=== PATIENT | female | born 1995 | race African-American/Black ===

== ENCOUNTER 2017-11-17 15:08 | Emergency (ER) | payer OTHER ==
[2017-11-17 15:31] VITALS: BP 98/61; PULSE 83; TEMP 97.3; BMI 20.3
--- NOTE | 2017-11-17 16:48 | PDOC ---
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 Pt states the pain has subsided . Past History - Past Medical History Allergies/Adverse Reactions: Allergies Allergy/AdvReac Type Severity Reaction Status Date / Time clarithromycin [From Biaxin] Allergy Verified 11/17/17 15:18 Home Medications: Ambulatory Orders NK [No Known Home Medication] 11/17/17 COPD: No - Suicide/Smoking/Psychosocial Hx Smoking History: Never smoked Have you smoked in the past 12 months: No Information on smoking cessation initiated: No Hx Alcohol Use: No Drug/Substance Use Hx: No Substance Use Type: None Review of Systems - Review of Systems Able to Perform ROS?: Yes Is the patient limited Mosotho proficient: No Constitutional: No: Symptoms Reported HEENTM: No: Symptoms Reported Respiratory: No: Symptoms reported Cardiac (ROS): No: Symptoms Reported ABD/GI: No: Symptoms Reported : No: Symptoms Reported Musculoskeletal: Yes: Symptoms Reported *Physical Exam - Vital Signs Last Vital Signs Temp Pulse Resp BP Pulse Ox 97.3 F L 83 18 98/61 100 11/17/17 15:18 11/17/17 15:18 11/17/17 15:18 11/17/17 15:18 11/17/17 15:18 - Physical Exam General Appearance: Yes: Nourished, Appropriately Dressed HEENT: positive: EOMI, GISELLA Musculoskeletal: positive: Normal Inspection Extremity: positive: Normal Capillary Refill, Normal Inspection, Normal Range of Motion. negative: Tender, Swelling, Inflammation Integumentary: positive: Normal Color, Dry, Warm Neurologic: positive: Fully Oriented, Alert, Normal Mood/Affect, Normal Response , Motor Strength 5/5 Medical Decision Making - Medical Decision Making 11/17/17 18:42 cc: foot injury no sign of trauma FROM of all 5 toes and the foot right side pt refused an xray refused motrin will dc home with follow up as needed pt has her UGG boot in place states that it is very comfortable in the boot *DC/Admit/Observation/Transfer Diagnosis at time of Disposition: Foot pain, right - Discharge Dispostion Disposition: HOME Condition at time of disposition: Good - Referrals Referrals: Mago Rhodes MD [Primary Care Provider] - Renard Espino MD [Staff Physician] - - Patient Instructions Additional Instructions: follow with the curam developer for follow up if symptoms worsen or persist take motrin for pain as needed elevate and apply ice every 2hrs for 20 minutes for the next 2 days - Post Discharge Activity
== END 2017-11-17 16:50 | disposition home or self-care (01) ==
LOC: JERFT 15:08
DX: S99.821A Other specified injuries of right foot, initial encounter (principal); W01.190A Fall on same level from slipping, tripping and stumbling with subsequent striking against furniture, initial encounter; Y93.89 Activity, other specified; Y92.032 Bedroom in apartment as the place of occurrence of the external cause
CPT/HCPCS: 99281-25

== ENCOUNTER 2018-11-09 18:33 | Emergency (ER) | payer OTHER ==
[2018-11-09 18:43] VITALS: BP 122/70; PULSE 73; TEMP 98.4; BMI 19.9
--- NOTE | 2018-11-09 18:43 | PDOC ---
Rapid Medical Evaluation Chief Complaint: Vaginal Bleeding Time Seen by Provider: 11/09/18 18:40 Medical Evaluation: Allergies Allergy/AdvReac Type Severity Reaction Status Date / Time clarithromycin [From Biaxin] Allergy Verified 11/09/18 18:40 11/09/18 18:41 I have performed a brief in person evaluation of this patient. The patient's CC: vaginal lesions HPI: Pt is a 23 YO female who states over the past 2-3 days she has had vaginal lesions. She denies HX of STDs. PE: Skin: Clear Heart: RRR Lungs: Clear MS. moves all extremities without difficulty. Neuro: Alert and oriented Psch: appropriate affect The patient will proceed to main ED for further evaluation. Discharge Disposition - Diagnosis Vaginal lesion - Referrals - Patient Instructions - Post Discharge Activity
--- NOTE | 2018-11-09 19:45 | PDOC ---
History of Present Illness - General Chief Complaint: Vaginal Bleeding Stated Complaint: Vaginal Bleeding Time Seen by Provider: 11/09/18 18:40 History Source: Patient Exam Limitations: No Limitations - History of Present Illness Travel History: No Initial Comments: 11/09/18 19:40 Here with complaints of pelvic pain. States was taking Levaquin last week for severe bronchitis and finished 8 days ago. Since that time developed a yeast infection with erythema to her vagina and. Knee and with itching but minimal discharge. Yesterday noted a small swelling to the top of her vagina/clitoral area that is mildly tender. Was concerned after her [employer] search that she may have cancer Timing/Duration: reports: constant, intermittent Quality: reports: mild Past History - Travel Traveled outside of the country in the last 30 days: No Close contact w/someone who was outside of country & ill: No - Past Medical History Allergies/Adverse Reactions: Allergies Allergy/AdvReac Type Severity Reaction Status Date / Time clarithromycin [From Biaxin] Allergy Verified 11/09/18 18:40 Home Medications: Ambulatory Orders Fluconazole [Diflucan] 150 mg PO ONCE #1 tablet 11/09/18 COPD: No - Immunization History Immunization Up to Date: Yes - Suicide/Smoking/Psychosocial Hx Smoking History: Never smoked Have you smoked in the past 12 months: No Hx Alcohol Use: No Drug/Substance Use Hx: No Substance Use Type: None Review of Systems - Review of Systems Able to Perform ROS?: Yes Is the patient limited Romanian proficient: Yes Constitutional: Yes: Symptoms Reported, See HPI, Malaise. No: Chills, Fever *Physical Exam - Vital Signs Last Vital Signs Temp Pulse Resp BP Pulse Ox 98.4 F 73 17 122/70 100 11/09/18 18:40 11/09/18 18:40 11/09/18 18:40 11/09/18 18:40 11/09/18 18:40 - Physical Exam General Appearance: Yes: Nourished, Appropriately Dressed, Apparent Distress, Mild Distress HEENT: positive: GISELLA, Normal ENT Inspection, TMs Normal, Pharynx Normal Neck: positive: Supple. negative: Tender Female Pelvic Exam: positive: discharge, other (faint white). negative: normal external exam Gastrointestinal/Abdominal: positive: Soft. negative: Normal Bowel Sounds, Tender Extremity: positive: Normal Capillary Refill Integumentary: positive: Normal Color Neurologic: positive: pelletizer tender II-XII NML intact, Fully Oriented, Alert, Normal Mood/ Affect, Normal Response, Motor Strength 5/5 Moderate Sedation - Procedure Monitoring Vital Signs: Procedure Monitoring Vital Signs Temperature 98.4 F 11/09/18 18:40 Pulse Rate 73 11/09/18 18:40 Respiratory Rate 17 11/09/18 18:40 Blood Pressure 122/70 11/09/18 18:40 O2 Sat by Pulse Oximetry (%) 100 11/09/18 18:40 Progress Note - Progress Note Progress Note: Vaginal candidiasis, will treat with 1 dose of Diflucan, hot soaks to perineum and 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 *DC/Admit/Observation/Transfer Diagnosis at time of Disposition: Vaginal lesion, Candidiasis - Discharge Dispostion Disposition: HOME Condition at time of disposition: Stable Decision to Admit order: No - Prescriptions Prescriptions: Fluconazole [Diflucan] 150 mg PO ONCE #1 tablet - Referrals Referrals: Carmella Juárez MD [Primary Care Provider] - - Patient Instructions Printed Discharge Instructions: DI for Vaginal Yeast Infection Additional Instructions: Rest, strenuous activity or exercise until symptoms resolved avoid tight fitting clothing, use cotton underwear and allowed to air out Hot soaks 2-3 times a day until symptoms resolve 1 tablet of Diflucan 150 mg to treat yeast infection If symptoms persist or worsen, return to emergency department or seek advice from SPINNING BATH PERSON - Post Discharge Activity
== END 2018-11-09 19:55 | disposition home or self-care (01) ==
LOC: JERFT 18:33
DX: B37.3 Candidiasis of vulva and vagina (principal); N89.8 Other specified noninflammatory disorders of vagina
CPT/HCPCS: 99281-25

== ENCOUNTER 2019-01-18 22:53 | Emergency (ER) | payer OTHER ==
[2019-01-18 23:26] VITALS: BP 126/87; PULSE 90; TEMP 98.2
--- NOTE | 2019-01-18 23:41 | PDOC ---
*Physical Exam - Vital Signs Last Vital Signs Temp Pulse Resp BP Pulse Ox 98.2 F 90 18 126/87 100 01/18/19 23:21 01/18/19 23:21 01/18/19 23:21 01/18/19 23:21 01/18/19 23:21 Medical Decision Making - Medical Decision Making 01/18/19 23:41 Patient seen by the advanced practice provider under my direct supervision. Ancillary testing reviewed as necessary. I agree with plan as outlined by the advanced practice provider. *DC/Admit/Observation/Transfer - Referrals Referrals: Carmella Juárez MD [Primary Care Provider] - - Patient Instructions - Post Discharge Activity
== END 2019-01-19 00:20 | disposition left against medical advice (07) ==
LOC: JER 22:53
DX: Z53.21 Procedure and treatment not carried out due to patient leaving prior to being seen by health care provider (principal)
CPT/HCPCS: 99281-25

== ENCOUNTER 2019-03-09 21:43 | Emergency (ER) | payer OTHER ==
[2019-03-09 21:50] VITALS: BP 109/73; PULSE 85; TEMP 98.2; BMI 20.2
--- NOTE | 2019-03-09 21:50 | PDOC ---
Rapid Medical Evaluation Time Seen by Provider: 03/09/19 21:47 Medical Evaluation: Allergies Allergy/AdvReac Type Severity Reaction Status Date / Time clarithromycin [From Biaxin] Allergy Verified 01/18/19 23:23 03/09/19 21:47 I have performed a brief in-person evaluation of this patient. The patient presents with a chief complaint of: "when i went to bathroom i saw i had this jelly like thing to my eye and it was red." pt reports usually wearing contacts Pertinent physical exam findings: left eye mildly injected I have ordered the following: nothing The patient will proceed to the ED for further evaluation. Discharge Disposition - Referrals Referrals: Carmella Juárez MD [Primary Care Provider] - - Patient Instructions - Post Discharge Activity
--- NOTE | 2019-03-09 21:58 | PDOC ---
History of Present Illness - General Chief Complaint: Eye Problem Stated Complaint: EYE PROBLEM Time Seen by Provider: 03/09/19 21:47 - History of Present Illness Initial Comments: 03/09/19 21:57 23-year-old female without comorbidities presents for evaluation of left eye irritation after taking out her contact lens. She states she feels a bulge on the lateral aspect of her left eyeball. Past History - Past Medical History Allergies/Adverse Reactions: Allergies Allergy/AdvReac Type Severity Reaction Status Date / Time clarithromycin [From Biaxin] Allergy Verified 03/09/19 21:47 Home Medications: Ambulatory Orders Tobramycin 0.3% Ophth Soln [Tobrex Ophthalmic Solution -] 1 drop OS Q4HWA 5 Days #1 bottle 03/09/19 COPD: No Psychiatric Problems: Yes - Immunization History Immunization Up to Date: Yes - Suicide/Smoking/Psychosocial Hx Smoking History: Never smoked Have you smoked in the past 12 months: No Hx Alcohol Use: No Drug/Substance Use Hx: No Substance Use Type: None Review of Systems - Review of Systems HEENTM: Yes: See HPI *Physical Exam - Vital Signs Last Vital Signs Temp Pulse Resp BP Pulse Ox 98.2 F 85 18 109/73 100 03/09/19 21:49 03/09/19 21:49 03/09/19 21:49 03/09/19 21:49 03/09/19 21:49 - Physical Exam Comments: 03/09/19 21:57 HEAD: NC/AT EYES: Conjuntiva clear; there is no foreign body present in the left eye MS: Full ROM in all joints without edema NEUROLOGIC: No gross sensory or motor deficits, NVID SKIN: Normal color and temperature no lesions or rashes Medical Decision Making - Medical Decision Making 03/09/19 21:57 There is no foreign body in the eye. Patient does feel and irritation after taking out her contact lens. I've placed on tobramycin drops and will have her follow-up with ophthalmology tomorrow. *DC/Admit/Observation/Transfer Diagnosis at time of Disposition: Eye irritation - Discharge Dispostion Disposition: HOME Condition at time of disposition: Stable Decision to Admit order: No - Referrals Referrals: Carmella Juárez MD [Primary Care Provider] - Taiwo Massey MD [Staff Physician] - - Patient Instructions Additional Instructions: Please use the antibiotic drops as directed and follow-up with ophthalmology in one day without fail. Return to the emergency room for worsening symptoms. - Post Discharge Activity
== END 2019-03-09 22:17 | disposition home or self-care (01) ==
LOC: JERFT 21:43
DX: H57.89 Other specified disorders of eye and adnexa (principal)
CPT/HCPCS: 99281-25

== ENCOUNTER 2019-08-13 09:12 | Emergency (ER) | payer OTHER ==
[2019-08-13 09:19] VITALS: BP 120/72; PULSE 74; TEMP 98.2; BMI 20.2
--- NOTE | 2019-08-13 09:34 | PDOC ---
History of Present Illness - General Chief Complaint: Pain Stated Complaint: BLEEDING Time Seen by Provider: 08/13/19 09:34 - History of Present Illness Initial Comments: 08/13/19 09:49 23 year old woman with a history of endometriosis who presents with 2 month of irregular periods, LNMP 07/31/19, now with lower abdominal cramping yesterday with nausea and diarrhea and vaginal spotting. She reports she went to urgent care and they told her she needed an ultrasound. The patient reports that she is sexually active with one partner and does not use any form of protection. She denies any history of STDs. She noted some slight nausea and cramping last night but has no other complaints. ROS GENERAL/CONSTITUTIONAL: No fever or chills. No weakness. CARDIOVASCULAR: No chest pain or shortness of breath RESPIRATORY: No cough, wheezing, or hemoptysis. GASTROINTESTINAL: No nausea, vomiting, diarrhea or constipation. GENITOURINARY: No dysuria, frequency, or change in urination. MUSCULOSKELETAL: No joint or muscle swelling or pain. No neck or back pain. SKIN: No rash PE GENERAL: Awake, alert, and fully oriented, in no acute distress HEAD: No signs of trauma, normocephalic, atraumatic EYES: EOMI, sclera anicteric, conjunctiva clear ENT: oropharynx clear without exudates. Moist mucosa NECK: Normal ROM, supple LUNGS: No distress, speaks full sentences, clear to auscultation bilaterally HEART: Regular rate and rhythm, normal S1 and S2, no murmurs, rubs or gallops, peripheral pulses normal and equal bilaterally. ABDOMEN: Soft, + mild LLQ tenderness, No guarding, no rebound. No masses EXTREMITIES : Normal inspection, Normal range of motion, no edema. No clubbing or cyanosis. NEUROLOGICAL: Cranial nerves II through XII grossly intact. Normal speech, normal gait, no focal sensorimotor deficits SKIN: Warm, Dry, normal turgor, no rashes or lesions noted PELVIC: slightly opened os, some blood in the vaginal vault, no adnexal masses, no cervical motion tenderness MDM DDX including but not limited to: endometriosis r/o ectopic vs torsion W/U: - cbc, cmp, beta, ua, tvus ED Course: labs wnl TVUS - normal d/c with pcp and obgyn f/u strict return precautions Vielka Costello, PGY2 Emergency Medicine Past History - Past Medical History Allergies/Adverse Reactions: Allergies Allergy/AdvReac Type Severity Reaction Status Date / Time clarithromycin [From Biaxin] Allergy Verified 08/13/19 09:14 Home Medications: Ambulatory Orders Ondansetron [Zofran *Odt*] 4 mg SL TID PRN 08/13/19 COPD: No Psychiatric Problems: Yes - Immunization History Immunization Up to Date: Yes - Psycho Social/Smoking Cessation Hx Smoking History: Never smoked Have you smoked in the past 12 months: No Hx Alcohol Use: No Drug/Substance Use Hx: No Substance Use Type: None *Physical Exam - Vital Signs Last Vital Signs Temp Pulse Resp BP Pulse Ox 98.2 F 74 18 120/72 100 08/13/19 09:14 08/13/19 09:14 08/13/19 09:14 08/13/19 09:14 08/13/19 09:14 ED Treatment Course - LABORATORY CBC & Chemistry Diagram: 08/13/19 10:09 08/13/19 10:09 Discharge - Discharge Information Problems reviewed: Yes Clinical Impression/Diagnosis: Vaginal spotting, Abdominal cramping Condition: Stable Disposition: HOME - Admission No - Follow up/Referral Referrals: Eulalia Luna DO [Staff Physician] - Kari Zavala MD [Staff Physician] - - Patient Discharge Instructions Patient Printed Discharge Instructions: DI for Endometriosis, DI for Dysmenorrhea Additional Instructions: You were seen in the ED for for complaints of vaginal spotting and abdominal cramping. Your labs were within normal You should follow up with your Family Doctor You have a referral to OBGYN and should follow up within 1 week. Return to the ED if you have worsening abdominal cramping, vaginal bleeding outside of menses or any other concerning symptoms. - Post Discharge Activity
[2019-08-13 10:31] LABS: BASO % 1.2 % (0-2.0); EOS % 2.1 % (0-4.5); HEMATOCRIT 39.1 % (32.4-45.2); LYMPH % 38.5 % (8-40); MCH 28.4 pg (25.7-33.7); MCHC 33.3 g/dl (32.0-36.0); MEAN CELL VOLUME 85.1 fl (80-96); MEAN PLT VOLUME 8.1 fl (7.5-11.1); MONO % 6.7 % (3.8-10.2); NEUT % 51.5 % (42.8-82.8); PLATELET COUNT 258 K/MM3 (134-434); WHITE BLOOD COUNT 4.3 K/mm3 (4.0-10.0)
[2019-08-13 10:35] LABS: EPI CELLS 4.3 /HPF (0-5/HPF); HYALINE CASTS 10 /lpf (0-8); URINE APPEARANCE CLEAR; URINE BACTERIA 35.8 /hpf (NEGATIVE); URINE BILIRUBIN NEGATIVE (NEGATIVE); URINE COLOR YELLOW; URINE GLUCOSE (UA) NEGATIVE (NEGATIVE); URINE KETONE 1+ (NEGATIVE); URINE LEUK ESTERASE TRACE (NEGATIVE); URINE NITRITE NEGATIVE (NEGATIVE); URINE PROTEIN TRACE (NEGATIVE); URINE RBC 143 /hpf (0-4); URINE UROBILINOGEN 0.2 mg/dL (0.2-1.0); URINE WBC 5 /hpf (0-5)
--- NOTE | 2019-08-13 10:41 | PDOC ---
Attending Attestation - Resident Resident Name: Vielka Costello - ED Attending Attestation I have performed the following: I have examined & evaluated the patient, The case was reviewed & discussed with the resident, I agree w/resident's findings & plan, Exceptions are as noted - HPI HPI: 08/13/19 10:36 Ms Monge is a 23 yo F h/o endometriosis who presents with lower abdominal cramping yesterday associated with nausea and diarrhea and vaginal spotting Pt has noted 2 months of irregular periods (LMP 07/31/19) She was initially seen at an urgent care yesterday and told that she needs and ultrasound (She does not know the results of a test) The patient reports that she is sexually active with one partner and does not use any form of protection. - Physicial Exam PE: 08/13/19 10:38 PE GENERAL: Awake, alert, and fully oriented, in no acute distress EYES: EOMI, sclera anicteric, conjunctiva clear ENT: Moist mucosa LUNGS: No distress, speaks full sentences, clear to auscultation bilaterally HEART: Regular rate and rhythm, normal S1 and S2, no murmurs, rubs or gallops, peripheral pulses normal and equal bilaterally. ABDOMEN: Soft, + mild LLQ tenderness, No guarding, no rebound. No masses EXTREMITIES : Normal inspection, Normal range of motion, no edema. No clubbing or cyanosis. NEUROLOGICAL: Cranial nerves II through XII grossly intact. Normal speech, normal gait, no focal sensorimotor deficits SKIN: Warm, Dry, normal turgor, no rashes or lesions noted PELVIC: per Dr. Costello - Medical Decision Making 08/13/19 10:38 Pt presenting to the ER with lower abdominal cramping and irregularity of her menses DD includes: Endometriosis, early , Ectopic , threatened AB Will do: Labs UA US Re Assess Tylenol for pain 08/13/19 10:41 Laboratory Tests 08/13/19 08/13/19 10:09 10:09 WBC 4.3 Hgb 13.0 Hct 39.1 Plt Count 258 Urine Blood 3+ H Urine Nitrite Negative Ur Leukocyte Esterase Trace Urine WBC (Auto) 5 Urine RBC (Auto) 143 08/13/19 11:40 Laboratory Tests 08/13/19 10:09 Anion Gap 7 L BUN 9.0 Total Bilirubin 1.5 H AST 46 H ALT 29 Beta HCG, Quant < 1.0 US: no evidence of torsion, no ovarian cysts Will discharge to home Follow up with store standards associate
[2019-08-13 11:19] LABS: ALBUMIN 4.6 g/dl (3.4-5.0); ANION GAP 7 MMOL/L (8-16); CALCIUM 8.7 mg/dL (8.5-10.1); CHLORIDE 108 mmol/L (98-107); CO2 25 mmol/L (21-32); GLUCOSE,RANDOM 79 mg/dL (74-106); POTASSIUM 3.6 mmol/L (3.5-5.1); SODIUM 139 mmol/L (136-145)
[2019-08-13 11:25] LABS: ALK PHOS 71 U/L (45-117); BILIRUBIN,TOTAL 1.5 mg/dL (0.2-1); CREATININE 0.7 mg/dL (0.55-1.3); SGOT/AST 46 U/L (15-37); SGPT/ALT 29 U/L (13-61); TOT PROT 7.7 g/dl (6.4-8.2)
== END 2019-08-13 11:52 | disposition home or self-care (01) ==
LOC: JER 09:12
DX: N93.8 Other specified abnormal uterine and vaginal bleeding (principal); N92.5 Other specified irregular menstruation; Z87.42 Personal history of other diseases of the female genital tract; Z88.1 Allergy status to other antibiotic agents
CPT/HCPCS: 36415; 76830-TC; 80053; 81003; 84702; 85025; 86850; 86900; 86901; 87086; 87491; 87591; 99283-25

== ENCOUNTER 2019-09-29 18:42 | Emergency (ER) | payer OTHER ==
[2019-09-29 18:46] VITALS: BP 120/71; PULSE 89; TEMP 98; BMI 20.7
--- NOTE | 2019-09-29 20:36 | PDOC ---
History of Present Illness - General Chief Complaint: Pain Stated Complaint: UNDER RT ARM PAIN Time Seen by Provider: 09/29/19 19:58 History Source: Patient Exam Limitations: No Limitations - History of Present Illness Initial Comments: 09/29/19 20:31 24-year-old female denies past medical history presents for a painless palpable mass to right breast which she noticed approximately 3 days ago. She went to an urgent care center today who referred her to the emergency room for a breast ultrasound. Last week patient completed 5 days of Tamiflu for flulike symptoms. LMP September 18, 2019, denies fever, chills, chest pain, shortness of breath, nausea, vomiting, diarrhea or any other symptoms. Currently does not have a primary care doctor. ROS: GENERAL/CONSTITUTIONAL: No fever, chills, weakness, dizziness HEAD, EYES, EARS, NOSE AND THROAT: No changes in vision, No ear pain or discharge, No sore throat CARDIOVASCULAR: No chest pain RESPIRATORY: No shortness of breath or cough GASTROINTESTINAL: No pain, nausea, vomiting, diarrhea or constipation GENITOURINARY: No dysuria MUSCULOSKELETAL: No neck or back pain SKIN: Lump to right breast, no rash NEUROLOGIC: No headache, vertigo, loss of consciousness, or loss of sensation PE: GENERAL: well-appearing, NAD HEAD: NCAT EYES: Pupils equal, round and reactive to light, sclera anicteric, conjunctiva clear ENT: pharynx: no erythema, no exudate, uvula midline NECK: supple CHEST: Approximately 2 cm x 2 cm nontender, palpable mass to right upper quadrant of right breast approximately 1 o'clock, no nipple discharge, no breast erythema or swelling noted RESP: clear, no w/r/r CARDIO: rrr, no m/g/r ABD: +BS, soft, nontender, non distended BACK: no midline spinal ttp, no CVAT EXTREMITIES: Normal range of motion, no edema NEUROLOGICAL: Normal speech, normal gait SKIN: Warm, Dry Is this a multiple visit Asthma Patient?: No Past History - Past Medical History Allergies/Adverse Reactions: Allergies Allergy/AdvReac Type Severity Reaction Status Date / Time clarithromycin [From Biaxin] Allergy Verified 09/29/19 18:46 Home Medications: Ambulatory Orders Ondansetron [Zofran *Odt*] 4 mg SL TID PRN 08/13/19 COPD: No Psychiatric Problems: Yes - Reproductive History (#): 0 Para: 0 - Immunization History Immunization Up to Date: Yes - Psycho Social/Smoking Cessation Hx Smoking History: Never smoked Have you smoked in the past 12 months: No Hx Alcohol Use: No Drug/Substance Use Hx: No Substance Use Type: None *Physical Exam - Vital Signs Last Vital Signs Temp Pulse Resp BP Pulse Ox 98 F 89 18 120/71 100 09/29/19 18:43 09/29/19 18:43 09/29/19 18:43 09/29/19 18:43 09/29/19 18:43 ED Treatment Course - RADIOLOGY Radiology Studies Ordered: Category Date Time Status BREAST US RIGHT LIMITED [US] Stat Ultrasound 09/29/19 20:04 Ordered Medical Decision Making - Medical Decision Making 09/29/19 20:34 24-year-old female complaining of palpable lump to right breast, noticed 3 days ago, sent by an urgent care for a breast ultrasound. I ordered a breast ultrasound however biodiesel processing technician called me and informed me that they do not perform breast ultrasounds for assessment of a breast mass. Therefore will discharge patient with instruction to follow-up with a PMD or rail switch operator within the next 2 to 3 days. Brochure for [facility] care center provided. Return precautions discussed Discharge - Discharge Information Problems reviewed: Yes Clinical Impression/Diagnosis: Breast mass in female Condition: Stable Disposition: HOME - Admission No - Follow up/Referral - Patient Discharge Instructions Additional Instructions: Please schedule an appointment with a primary care physician to schedule a mammogram Then follow-up with a rail switch operator within 1 week Return to ED if fever, chills, breast swelling, breast pain or any worsening symptoms - Post Discharge Activity
== END 2019-09-29 20:54 | disposition home or self-care (01) ==
LOC: JERFT 18:42
DX: N63.0 Unspecified lump in unspecified breast (principal); Z88.8 Allergy status to other drugs, medicaments and biological substances
CPT/HCPCS: 99281-25

== ENCOUNTER 2019-12-27 12:53 | Emergency (ER) | payer OTHER ==
--- NOTE | 2019-12-27 13:07 | PDOC ---
Rapid Medical Evaluation Time Seen by Provider: 12/27/19 13:04 Medical Evaluation: Allergies Allergy/AdvReac Type Severity Reaction Status Date / Time clarithromycin [From Biaxin] Allergy Verified 09/29/19 18:46 12/27/19 13:05 I have performed a brief in-person evaluation of this patient. The patient presents with a chief complaint of: Has endometriosis and this morning was having severe pain and unable to get comfortable. Has all her reproductive organs. Took Advil and used heat without relief. Currently on her menses. Pertinent physical exam findings: stable and well jose m, no acute distress I have ordered the following: labs, ua, upreg The patient will proceed to the ED for further evaluation Discharge Disposition - Diagnosis Abdominal pain - Referrals - Patient Instructions - Post Discharge Activity
[2019-12-27 13:09] VITALS: BMI 20.5
--- NOTE | 2019-12-27 14:17 | PDOC ---
History of Present Illness - General Chief Complaint: Pain Stated Complaint: ABD PAIN Time Seen by Provider: 12/27/19 13:04 History Source: Patient Exam Limitations: No Limitations - History of Present Illness Travel History: No Initial Comments: 12/27/19 14:12 24-year-old female with history of endometriosis presents to the emergency room with complaints of lower abdominal cramping which she describes as sharp and intermittent. Patient denies aggravating factors and took Motrin today with no relief. Patient states has no urinary complaints, fever, chills, nausea, diarrhea, abdominal distention, no concern for . 0 Timing/Duration: reports: constant Quality: reports: mild, moderate, cramping Abdominal Pain Onset Location: reports: suprapubic Pain Radiation: reports: no radiation Activities at Onset: reports: none Aggravating Factors: improves with: None Alleviating Factors: improves with: None Past History - Travel Traveled outside of the country in the last 30 days: No Close contact w/someone who was outside of country & ill: No - Past Medical History Allergies/Adverse Reactions: Allergies Allergy/AdvReac Type Severity Reaction Status Date / Time clarithromycin [From Biaxin] Allergy Verified 12/27/19 13:09 Home Medications: Ambulatory Orders Ondansetron [Zofran *Odt*] 4 mg SL TID PRN 08/13/19 COPD: No Psychiatric Problems: Yes - Reproductive History (#): 0 Para: 0 - Immunization History Immunization Up to Date: Yes - Psycho Social/Smoking Cessation Hx Smoking History: Never smoked Have you smoked in the past 12 months: No Information on smoking cessation initiated: No Hx Alcohol Use: No Drug/Substance Use Hx: No Substance Use Type: None Patient Lives Alone: No Lives with/in: parents Review of Systems - Review of Systems Able to Perform ROS?: Yes Constitutional: No: Symptoms Reported HEENTM: No: Symptoms Reported Respiratory: No: Symptoms reported Cardiac (ROS): No: Symptoms Reported ABD/GI: Yes: Abdominal cramping : No: Symptoms Reported Musculoskeletal: No: Symptoms Reported Integumentary: No: Symptoms Reported Neurological: No: Symptoms reported Endocrine: No: Symptoms Reported Hematologic/Lymphatic: No: Symptoms Reported *Physical Exam - Vital Signs Last Vital Signs Temp Pulse Resp BP Pulse Ox 97.3 F L 70 17 97/64 100 12/27/19 13:06 12/27/19 13:06 12/27/19 13:06 12/27/19 13:06 12/27/19 13:06 - Physical Exam General Appearance: Yes: Nourished, Appropriately Dressed. No: Apparent Distress HEENT: negative: Pale Conjunctivae Neck: positive: Supple Respiratory/Chest: positive: Lungs Clear, Normal Breath Sounds. negative: Res piratory Distress, Accessory Muscle Use Cardiovascular: positive: Regular Rhythm, Regular Rate. negative: Murmur Gastrointestinal/Abdominal: positive: Soft, Tenderness (Mid suprapubic) Musculoskeletal: negative: CVA Tenderness Extremity: positive: Normal Inspection Integumentary: positive: Normal Color, Warm, Moist Neurologic: positive: Motor Strength 5/5 (ambulatory) ED Treatment Course - LABORATORY CBC & Chemistry Diagram: 12/27/19 14:06 12/27/19 14:06 Medical Decision Making - Medical Decision Making 12/27/19 14:20 CC: Lower abdominal cramping without fever, chills patient currently menstruating day 1 of 7 took Motrin with no relief Exam: Patient with suprapubic tenderness no CVA tenderness vital signs stable Plan: Urine, labs and ultrasound ordered 12/27/19 15:05 Patient discloses she was having lower abdominal cramping associated with nausea. Symptoms slightly subsided since arrival 12/27/19 15:07 Patient sees sizer hand at [address] [place] [address] 12/27/19 15:08 Pt states s/s similar to endomiotrosis 12/27/19 16:41 Patient states feeling much better after receiving fluids and Toradol 12/27/19 16:42 Laboratory Tests 12/27/19 12/27/19 12/27/19 14:06 14:06 14:06 WBC 13.0 H Hgb 12.4 Hct 38.0 Absolute Neuts (auto) 11.5 H Neutrophils % 88.0 H D Lymphocytes % 7.6 L D Monocytes % 3.7 L Sodium 141 Potassium 4.0 Chloride 108 H Total Bilirubin 1.8 H Urine Protein 1+ H Urine Ketones 2+ H Urine Blood 3+ H Urine Nitrite Negative Urine Bilirubin Negative Urine Urobilinogen 0.2 Ur Leukocyte Esterase Negative Urine WBC (Auto) 4 Urine RBC (Auto) 75 Urine Casts (Auto) 14 Urine HCG, Qual Negative We will discharge patient home with recommendations to take Tylenol use heating pad and follow-up with her [facility] Discharge - Discharge Information Problems reviewed: Yes Clinical Impression/Diagnosis: Lower abdominal pain Condition: Improved Disposition: HOME - Follow up/Referral - Patient Discharge Instructions Patient Printed Discharge Instructions: DI for Abdominal Pain-Adult Additional Instructions: At this time your urine shows that you are slightly dehydrated. I do want to drink plenty of fluids take Tylenol for pain and follow-up with [facility] - Post Discharge Activity
[2019-12-27 14:47] LABS: BASO % 0.4 % (0-2.0); EOS % 0.3 % (0-4.5); HEMOGLOBIN 12.4 GM/dL (10.7-15.3); LYMPH % 7.6 % (8-40); MCH 27.9 pg (25.7-33.7); MCHC 32.6 g/dl (32.0-36.0); MEAN CELL VOLUME 85.5 fl (80-96); MEAN PLT VOLUME 8.4 fl (7.5-11.1); MONO % 3.7 % (3.8-10.2); PLATELET COUNT 262 K/MM3 (134-434); RBC 4.44 M/mm3 (3.60-5.2); RDW 12.9 % (11.6-15.6)
[2019-12-27 14:55] LABS: EPI CELLS 3.9 /HPF (0-5/HPF); HCG,QUALITATIVE URINE Negative; HYALINE CASTS 14 /lpf (0-8); PH,URINE 5.5 (5.0-8.0); URINE APPEARANCE CLOUDY; URINE BACTERIA 4.1 /hpf (NEGATIVE); URINE BILIRUBIN NEGATIVE (NEGATIVE); URINE COLOR YELLOW; URINE GLUCOSE (UA) NEGATIVE (NEGATIVE); URINE KETONE 2+ (NEGATIVE); URINE LEUK ESTERASE NEGATIVE (NEGATIVE); URINE NITRITE NEGATIVE (NEGATIVE); URINE PROTEIN 1+ (NEGATIVE); URINE RBC 75 /hpf (0-4); URINE UROBILINOGEN 0.2 mg/dL (0.2-1.0); URINE WBC 4 /hpf (0-5)
[2019-12-27] MEDS ORDERED: SODIUM CHLORIDE 1,000 ML IV STA (15:04)
[2019-12-27] MEDS ORDERED: KETOROLAC TROMETHAMINE 30 MG/1 ML VIAL IVPUSH ONE (15:04)
[2019-12-27 15:11] LABS: ALBUMIN 4.6 g/dl (3.4-5.0); BILIRUBIN,TOTAL 1.8 mg/dL (0.2-1); BLOOD UREA NITROGEN 10.3 mg/dL (7-18); CALCIUM 9.1 mg/dL (8.5-10.1); CREATININE 0.6 mg/dL (0.55-1.3); TOT PROT 7.8 g/dl (6.4-8.2)
[2019-12-27] MEDS ORDERED: KETOROLAC TROMETHAMINE 30 MG/1 ML VIAL ONE (15:42)
[2019-12-27 17:00] VITALS: BP 102/68; PULSE 86; TEMP 97.9
== END 2019-12-27 16:35 | disposition home or self-care (01) ==
LOC: JER 12:53
PROC: 3E0333Z Introduction of Anti-inflammatory into Peripheral Vein, Percutaneous Approach (ICD-10-PCS; principal; 2019-12-27)
DX: R10.30 Lower abdominal pain, unspecified (principal); Z87.42 Personal history of other diseases of the female genital tract; Z88.1 Allergy status to other antibiotic agents
CPT/HCPCS: 36415; 80053; 81003; 84703; 85025; 87086; 96374; 99284-25; J7030

== ENCOUNTER 2021-06-23 20:53 | Emergency (ER) | payer OTHER ==
[2021-06-23 21:50] VITALS: BMI 20.7
[2021-06-23] MEDS ORDERED: ONDANSETRON 4 MG/2 ML VIAL IVPUSH ONE (22:18)
[2021-06-23] MEDS ORDERED: ACETAMINOPHEN 1000 MG/100 ML VIAL (NON FORMULARY) IVPB ONE (22:18)
[2021-06-23] MEDS ORDERED: MAG HYDROX/AL HYDROX/SIMETH -MYLANTA- ORAL SUSPENSION PO ONE (22:18)
[2021-06-23] MEDS ORDERED: FAMOTIDINE 20 MG TABLET PO ONE (22:20)
[2021-06-23] MEDS ORDERED: ACETAMINOPHEN INJECTION 100 ML IVPB ONE (22:27)
[2021-06-23] MEDS ORDERED: ONDANSETRON 4 MG/2 ML VIAL ONE (22:28)
[2021-06-23] MEDS ORDERED: MAG HYDROX/AL HYDROX/SIMETH 30 ML UNIT-DOSE CUP ONE (22:28)
[2021-06-23] MEDS ORDERED: FAMOTIDINE 20 MG/50 ML IVPB 20 MG/50 ML MG IVPB ONE (22:28)
[2021-06-23 23:00] LABS: BASO % 0.3 % (0-2.0); EOS % 0.3 % (0-4.5); HEMATOCRIT 37.7 % (32.4-45.2); HEMOGLOBIN 12.6 GM/dL (10.7-15.3); MCH 28.8 pg (25.7-33.7); MCHC 33.4 g/dl (32.0-36.0); MEAN CELL VOLUME 86.3 fl (80-96); MEAN PLT VOLUME 7.7 fl (7.5-11.1); MONO % 4.8 % (3.8-10.2); NEUT % 85.6 % (42.8-82.8); PLATELET COUNT 262 10^3/uL (134-434); RBC 4.37 M/mm3 (3.60-5.2); RDW 13.1 % (11.6-15.6); WHITE BLOOD COUNT 14.1 K/mm3 (4.0-10.0)
[2021-06-23 23:19] LABS: CALCIUM 8.8 mg/dL (8.5-10.1)
[2021-06-23 23:20] LABS: ALBUMIN 4.4 g/dl (3.4-5.0); BLOOD UREA NITROGEN 8.9 mg/dL (7-18); MAGNESIUM 2.1 mg/dL (1.8-2.4)
[2021-06-23 23:23] LABS: CREATININE 0.6 mg/dL (0.55-1.3)
[2021-06-23 23:24] LABS: BILIRUBIN,TOTAL 1.9 mg/dL (0.2-1); TOT PROT 7.9 g/dl (6.4-8.2)
[2021-06-24] MEDS ORDERED: SODIUM CHLORIDE 0.9% 500 ML INFUS.BAG IV ONE (00:12)
[2021-06-24] MEDS ORDERED: PIPERACILLIN/TAZOB 3.375 GM 3.375 GM in DEXTROSE 5%-WATER - 50 ML IVPB ONE (02:41)
[2021-06-24] MEDS ORDERED: PIPERACILLIN/TAZOB 3.375 GM 3.375 GM/50 ML BAG IVPB ONE (02:45)
[2021-06-24 07:05] VITALS: TEMP 99
[2021-06-24 08:45] VITALS: BP 108/76; PULSE 61
== END 2021-06-24 08:47 | disposition short-term general hospital (02) ==
LOC: JER 20:53
PROC: 3E033GC Introduction of Other Therapeutic Substance into Peripheral Vein, Percutaneous Approach (ICD-10-PCS; principal; 2021-06-23)
DX: K36 Other appendicitis (principal)
CPT/HCPCS: 36415; 74177-TC; 76705-TC; 80053; 83690; 83735; 84703; 85025; 99285-25; C9803; J0131; U0003; U0005

== ENCOUNTER 2023-02-21 13:33 | Emergency (ER) | payer OTHER ==
[2023-02-21 13:44] VITALS: BP 117/71; PULSE 92; RESP 18; TEMP 99; BMI 22.3
[2023-02-21] MEDS ORDERED: LACTATED RINGERS SOLUTION 1,000 ML/1,000 ML INFUS.BAG IV STA (14:14)
[2023-02-21] MEDS ORDERED: FAMOTIDINE 20 MG/50 ML IVPB 20 MG/50 ML MG IVPB ONE ×2 (14:15→14:35)
[2023-02-21] MEDS ORDERED: METOCLOPRAMIDE HCL INJECTION 10 MG/2 ML VIAL IVPUSH ONE (14:15)
[2023-02-21] MEDS ORDERED: MAG HYDROX/AL HYDROX/SIMETH 30 ML UNIT-DOSE CUP PO ONE (14:15)
[2023-02-21] MEDS ORDERED: METOCLOPRAMIDE HCL INJECTION 10 MG/2 ML VIAL ONE (14:35)
[2023-02-21] MEDS ORDERED: MAG HYDROX/AL HYDROX/SIMETH 30 ML UNIT-DOSE CUP ONE (14:35)
[2023-02-21 14:55] LABS: BASO % 0.2 % (0-2.0); EOS % 0.1 % (0-4.5); HEMATOCRIT 39.4 % (32.4-45.2); HEMOGLOBIN 13.3 GM/dL (10.7-15.3); LYMPH % 5.7 % (8-40); MCH 28.2 pg (25.7-33.7); MCHC 33.8 g/dl (32.0-36.0); MEAN CELL VOLUME 83.6 fl (80-96); MEAN PLT VOLUME 8.5 fl (7.5-11.1); MONO % 3.2 % (3.8-10.2); NEUT % 90.8 % (42.8-82.8); PLATELET COUNT 271 10^3/uL (134-434); RBC 4.72 M/mm3 (3.60-5.2); RDW 12.9 % (11.6-15.6); WHITE BLOOD COUNT 10.5 K/mm3 (4.0-10.0)
[2023-02-21 15:05] LABS: EPI CELLS >36 /uL (0-25.1); HCG,QUALITATIVE URINE Negative; HYALINE CASTS 1 /uL (0-3.1); PH,URINE 8.5 (5.0-8.0); URINE APPEARANCE CLEAR; URINE BACTERIA 219 /uL (0-1359); URINE BILIRUBIN NEGATIVE (NEGATIVE); URINE COLOR YELLOW; URINE GLUCOSE (UA) NEGATIVE (NEGATIVE); URINE KETONE NEGATIVE (NEGATIVE); URINE LEUK ESTERASE TRACE (NEGATIVE); URINE NITRITE NEGATIVE (NEGATIVE); URINE PROTEIN NEGATIVE (NEGATIVE); URINE RBC 19 /uL (0-23.9); URINE UROBILINOGEN 0.2 mg/dL (0.2-1.0); URINE WBC 30 /uL (0-25.8)
[2023-02-21 15:18] LABS: POTASSIUM 4.1 mmol/L (3.5-5.1)
[2023-02-21 15:20] LABS: CALCIUM 9.4 mg/dL (8.5-10.1)
[2023-02-21 15:21] LABS: ALBUMIN 4.2 g/dl (3.4-5.0); BLOOD UREA NITROGEN 6.4 mg/dL (7-18)
[2023-02-21 15:23] LABS: CREATININE 0.6 mg/dL (0.55-1.3)
[2023-02-21 15:25] LABS: BILIRUBIN,TOTAL 1.6 mg/dL (0.2-1); TOT PROT 7.9 g/dl (6.4-8.2)
[2023-02-21] MEDS ORDERED: ACETAMINOPHEN 1000 MG/100 ML BAG IVPB ONE (15:54)
[2023-02-21] MEDS ORDERED: ONDANSETRON 4 MG/2 ML VIAL IVPUSH ONE (16:04)
[2023-02-21] MEDS ORDERED: ONDANSETRON 4 MG/2 ML VIAL ONE (16:04)
== END 2023-02-21 20:21 | disposition home or self-care (01) ==
LOC: JERFT 13:33 → JER 13:33 → JERFT 20:21
PROC: 3E033GC Introduction of Other Therapeutic Substance into Peripheral Vein, Percutaneous Approach (ICD-10-PCS; principal; 2023-02-21)
PROC: 3E033NZ Introduction of Analgesics, Hypnotics, Sedatives into Peripheral Vein, Percutaneous Approach (ICD-10-PCS; 2023-02-21)
PROC: 3E033NZ Introduction of Analgesics, Hypnotics, Sedatives into Peripheral Vein, Percutaneous Approach (ICD-10-PCS; 2023-02-21)
PROC: 3E033NZ Introduction of Analgesics, Hypnotics, Sedatives into Peripheral Vein, Percutaneous Approach (ICD-10-PCS; 2023-02-21)
DX: R10.9 Unspecified abdominal pain (principal); N83.202 Unspecified ovarian cyst, left side; N30.00 Acute cystitis without hematuria; R11.2 Nausea with vomiting, unspecified; R19.7 Diarrhea, unspecified; M54.9 Dorsalgia, unspecified; Z20.822 Contact with and (suspected) exposure to COVID-19
CPT/HCPCS: 0241U-QW; 36415; 74177-TC; 76830-TC; 80053; 81003; 82150; 83690; 84703; 85025; 87086; 99285-25; Q9967